=== PATIENT | male | born 1985 | race African-American/Black ===

== ENCOUNTER 2025-04-05 10:22 | Emergency (ER) | payer SELFPAY ==
[~2025-04-05] VITALS: Ht 182.9 cm; Wt 105.0 kg
[2025-04-05 10:27] VITALS: O2SAT 99
[2025-04-05] MEDS ORDERED: CEPH500T MT (10:45)
[2025-04-05] MEDS ORDERED: SULF1TAB48 MT (10:45)
[2025-04-05 10:56] VITALS: BP 150/90; PULSE 92; RESP 16; TEMP 36.7; O2SAT 99
== END 2025-04-05 11:17 | disposition home or self-care (01) ==
LOC: ER 10:22
DX: L02.211 Cutaneous abscess of abdominal wall (principal)
CPT/HCPCS: 99283; Z7610 ×2; A4606